=== PATIENT | female | born 1995 | race Asian ===

== ENCOUNTER 2017-05-23 10:13 | Emergency (ER) | payer OTHER ==
[~2017-05-23] VITALS: Ht 154.9 cm; Wt 86.9 kg
[2017-05-23 10:15] VITALS: BP 125/91
[2017-05-23] MEDS ORDERED: [UNRECOGNIZED DRUG - CODE] PO (10:25)
[2017-05-23] MEDS ORDERED: AUGM875T28 PO (10:56)
== END 2017-05-23 11:02 | disposition home or self-care (01) ==
LOC: M ED 10:13
DX: H00.031 Abscess of right upper eyelid (principal); Z72.0 Tobacco use